=== PATIENT | male | born 1935 | race African-American/Black ===

== ENCOUNTER 2018-02-06 21:06 | Emergency (ER) | payer OTHER ==
[~2018-02-06] VITALS: Ht 180.3 cm; Wt 84.4 kg
[~2018-02-06 21:06] MED LIST: ACCUPRIL20 MG PO; AMLODIPINE BESY10 MG PO; ASPIR 8181 MG PO; CLOPIDOGREL75 MG PO; FINASTERIDE5 MG PO; GABAPENTIN300 MG PO; GLUCOTROL XL5 MG PO; ISOSORBIDE MONO20 MG PO; LINACLOTIDE PO; LIPITOR10 MG PO; MELATONIN1 MG; METOPROLOL TART50 MG PO; MIRAPEX0.25 MG PO; NITROGLYCERIN0.4 MG SL; REMERON15 MG PO; SEROQUEL25 MG PO; SINEMET 25-1001 EACH PO; ZOLOFT50 MG PO
== END 2018-02-06 22:27 | disposition home or self-care (01) ==
LOC: ER 21:06
DX: T83.028A Displacement of other urinary catheter, initial encounter (principal); Y83.3 Surgical operation with formation of external stoma as the cause of abnormal reaction of the patient, or of later complication, without mention of misadventure at the time of the procedure; Y92.019 Unspecified place in single-family (private) house as the place of occurrence of the external cause; G20 Parkinson's disease; F31.9 Bipolar disorder, unspecified; F20.9 Schizophrenia, unspecified; Z79.82 Long term (current) use of aspirin; Z79.02 Long term (current) use of antithrombotics/antiplatelets
CPT/HCPCS: 87086; 99282